=== PATIENT | male | born 1990 | race Two or more races ===

== ENCOUNTER 2024-06-10 10:55 | Outpatient (CLI) | payer OTHER | END 2024-06-10 11:08 | disposition home or self-care (01) | LOC: SONOGRAMA 10:55 | PROVIDERS: ATTEND Otolaryngology Plastic Surgery within the Head & Neck | DX: N52.01 Erectile dysfunction due to arterial insufficiency (principal); R05.9 Cough, unspecified; G56.01 Carpal tunnel syndrome, right upper limb; M54.2 Cervicalgia; G54.2 Cervical root disorders, not elsewhere classified; N52.9 Male erectile dysfunction, unspecified ==